=== PATIENT | female | born 1960 | race Caucasian/White ===

== ENCOUNTER → 2017-06-11 | Day surgery (SDC) | payer OTHER ==
[~2017-06-11] VITALS: Ht 157.5 cm; Wt 79.4 kg
--- NOTE | 2017-06-11 10:24 | Operative Report ---
Operative/Inv Procedure Report Surgery Date: 06/11/17 Name of Procedure: 1. Exam under anesthesia with anal block 2. Excision of anal polyp Pre-Operative Diagnosis: Anal polyp Post-Operative Diagnosis: Same Estimated Blood Loss: scant Surgeon/Mold Preparer: Nidhi Gresham MD Anesthesia: local monitored anesthesi Specimens: Anal polyp Complications: None Condition: Stable to recovery room Operative Indication: Patient is a 56-year-old woman who recently had colonoscopy and was found to have an anal canal polyp. The patient presents today for its excision. All risks benefits, benefits, and alternatives were explained to patient detail, and the patient expresses understanding and agreement with same. Operative/Procedure Note Note: Patient was taken to the operating room and placed in the prone jackknife position on the operating table. All appropriate pressure points were padded, and the patient was secured to the operating table. Bilateral lower extremity SCDs were placed. Anesthesia was established by anesthesia team. The buttocks were taped apart, prepped and draped in the standard surgical fashion. The timeout was carried out. The anal block was administered with 25 mL of 1% lidocaine with epinephrine. On anoscopy patient had anterior midline anal polyp that was consistent with chronically prolapsing mucosa. The polyp was excised and the incision was closed with a running 2-0 Vicryl suture. The anal canal was irrigated and checked for hemostasis. A small piece of Gelfoam was placed within the anal canal. Sterile dressings were applied. The sponge and instrument counts were correct in the end the procedure. Patient tolerated the procedure well, was wakened up and taken to recovery room in stable condition. Findings: anterior midline anal polyp consistent with anal mucosa Discharge Disposition: home
== END ==
LOC: STS 01:03
DX: D12.8 Benign neoplasm of rectum (principal); Z86.010 Personal history of colon polyps; E03.9 Hypothyroidism, unspecified; J45.909 Unspecified asthma, uncomplicated
CPT/HCPCS: C9399; J0131; J2250